=== PATIENT | female | born 1980 | race Caucasian/White ===

== ENCOUNTER 2020-08-11 15:20 | Emergency (ER) | payer OTHER, BC, SELFPAY ==
--- NOTE | ~2020-08-11 | XR_ITS ---
EXAMINATION: XR wrist RT min 3V EXAM DATE: 08/11/2020 16:37 INDICATION: Initial encounter following injury, with pain of the right wrist, felt pop. TECHNIQUE: Right wrist frontal, frontal with ulnar deviation, oblique and lateral projections obtain ed and reviewed. There is no prior study for comparison. FINDINGS: Right wrist scapholunate joint space is maintained. There are no acute fractures or disloca tions identified. There is no subcutaneous gas. The soft tissue is unremarkable. There are no rad iopaque foreign bodies. IMPRESSION: 1. Right wrist exam without acute osseous findings. Reviewed, dictated and finalized at location A. USSION INSTRUCTOR
[2020-08-11 15:45] VITALS: BP 108/72; PULSE 80; RESP 16; TEMP 36.6; O2SAT 98
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
== END 2020-08-11 17:49 | disposition home or self-care (01) ==
LOC: ANHED 17:52
PROVIDERS: Emergency Provider Emergency Medicine; PCP Family Medicine
DX: S63.501A Unspecified sprain of right wrist, initial encounter (principal); X50.9XXA Other and unspecified overexertion or strenuous movements or postures, initial encounter
CPT/HCPCS: 73110; 99283

== ENCOUNTER 2020-11-01 11:39 | Emergency (ER) | payer OTHER, BC, SELFPAY ==
--- NOTE | ~2020-11-01 | CT_ITS ---
EXAMINATION: CT brain wo con DATE: 11/01/2020 12:26 INDICATION: Closed head injury TECHNIQUE: Computed tomography (CT) of the head was performed without intravenous contrast. Sagittal and coronal reconstructions were performed. The mA was adjusted according to patient size. Iterative reconstruction technique was employed. The dose-length product was 605.33 mGy-cm. COMPARISON: None FINDINGS: No fracture. No acute intracranial hemorrhage, acute infarction or abnormal extra axial fluid collect ion. Ventricles are normal and symmetric. No mass/mass effect. The orbits, paranasal sinuses and mast oid air cells are normal. IMPRESSION: 1. Normal head CT. Reviewed, dictated and finalized at location A. IMPRESSION: 1. Normal head CT.
--- NOTE | ~2020-11-01 | CT_ITS ---
EXAMINATION: CT cervical spine wo con DATE: 11/01/2020 12:26 INDICATION: Closed head injury with neck pain and left-sided headache TECHNIQUE: Computed tomography (CT) of the cervical spine was performed without intravenous contrast. Automated exposure control and iterative reconstruction technique were employed. The dose-length pro duct was 229.89 mGy-cm. COMPARISON: None FINDINGS: Alignment is normal. Vertebral body heights are normal. No fracture. Minimal to mild disc height loss at C2-C3, C3-C4 and C5-C6. Multilevel mild facet and uncovertebral osteoarthritis. No significant ce ntral canal or neural foraminal stenosis. Cervical soft tissues are unremarkable. Visualized airway a nd apices of lungs are clear. IMPRESSION: 1. Minimal to mild cervical spondylosis. No acute osseous abnormality. Reviewed, dictated and finalized at location A.
[2020-11-01 11:47] VITALS: BP 117/66; PULSE 73; RESP 18; TEMP 36.6; O2SAT 100
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
== END 2020-11-01 13:36 | disposition home or self-care (01) ==
PROVIDERS: Emergency Provider Emergency Medicine; PCP Family Medicine
DX: F07.81 Postconcussional syndrome (principal); M47.812 Spondylosis without myelopathy or radiculopathy, cervical region; W51.XXXA Accidental striking against or bumped into by another person, initial encounter
CPT/HCPCS: 70450; 72125; 99284

== ENCOUNTER 2022-01-20 09:33 | Outpatient (CLI) | payer BC, SELFPAY ==
[2022-01-20 10:21] LABS: Hemoglobin 13.5 g/dL (12.0-15.0); Mean Corpuscular HGB Conc 32.1 g/dl (32-36); Mean Corpuscular Hemoglobin 28.6 pg (26-34); Mean Platelet Volume 10.2 fl (7.4-10.4); Platelet Count Result 199 k/mm3 (150-375); Red Blood Count 4.72 M/mm3 (4.2-5.4); Red Cell Distribution Width 12.7 % (11.5-14.5); White Blood Count 7.2 K/mm3 (4.5-10.0)
[2022-01-20 10:35] LABS: Alanine Aminotransferase 15 U/L (6-35); Albumin Level 4.5 g/dL (3.5-5.1); Alkaline Phosphatase 57 U/L (38-126); Anion Gap 8 mmol/L (8-16); Aspartate Amino Transferase 25 U/L (14-36); Bilirubin,Total 0.6 mg/dL (0.2-1.3); Blood Urea Nitrogen 14 mg/dL (7-17); CRP < 0.5 mg/dL (<1.0); Calcium 9.4 mg/dL (8.4-10.2); Carbon Dioxide 26 mmol/L (22-30); Chloride 99 mmol/L (98-107); Estimated Glomerular Filt Rate > 60; Glucose 95 mg/dL (65-110); Potassium 4.3 mmol/L (3.4-5.0); Sodium 133 mmol/L (137-145)
[2022-01-20 11:09] LABS: Erythrocyte Sedimentation Rate 8 mm/hr (0-20)
[2022-01-27 12:26] LABS: Tissue Transglutaminase IgA Ab <1.0 U/mL (<15.0)
[2022-01-28 11:19] LABS: Tissue Transglutaminase IgG Ab <1.0 U/mL (<15.0)
== END 2022-01-20 09:34 | disposition home or self-care (01) ==
LOC: ANHLAB 09:38
PROVIDERS: Visit Provider Nurse Practitioner Family
DX: R19.7 Diarrhea, unspecified (principal); R14.0 Abdominal distension (gaseous); R11.0 Nausea; N94.10 Unspecified dyspareunia
CPT/HCPCS: 36415; 80053; 83516; 84443; 85027; 85652; 86140

== ENCOUNTER → 2022-01-20 13:56 | Outpatient (CLI) | payer BC, SELFPAY ==
--- NOTE | ~2022-01-20 | US_ITS ---
EXAMINATION: US pelvic complete DATE: 01/20/2022 14:47 INDICATION: Dyspareunia Comparison:No prior studies for comparison. TECHNIQUE: Multiple transabdominal and endovaginal sonographic images of the pelvis performed. FINDINGS: The uterus measures 7.6 x 3.8 x 4.6 cm. There are small benign cysts of the uterus. The end ometrial complex measures 3.7 mm. The right ovary measures 2.3 x 2.1 x 2.2 cm and the left ovary measures 2.8 x 2.7 x 2.1 cm. There ar e small follicles in each ovary. Normal doppler signal in both ovaries. There is no free fluid in the pelvis. There are no abnormal masses seen on either side. IMPRESSION: 1. Unremarkable pelvic ultrasound Reviewed, dictated and finalized at location A.
== END ==
PROVIDERS: PCP Nurse Practitioner Family; Visit Provider Nurse Practitioner
DX: N94.10 Unspecified dyspareunia (principal)
CPT/HCPCS: 76856

== ENCOUNTER 2022-01-21 10:30 | Outpatient (CLI) | payer BC, SELFPAY ==
[2022-01-21 12:15] LABS: Toxigenic C. Diff NEGATIVE (NEGATIVE)
[2022-01-28 22:31] LABS: Calprotectin, Stool <5 mcg/g
== END 2022-01-21 10:31 | disposition home or self-care (01) ==
LOC: ANHLAB 10:31
PROVIDERS: PCP Nurse Practitioner Family; Visit Provider Nurse Practitioner Family
DX: R19.7 Diarrhea, unspecified (principal); R14.0 Abdominal distension (gaseous); R11.0 Nausea
CPT/HCPCS: 83993; 87045; 87177; 87209; 87427; 87493

== ENCOUNTER 2022-01-25 11:13 | Outpatient (CLI) | payer BC, SELFPAY ==
--- NOTE | ~2022-01-25 | XR_ITS ---
EXAMINATION: XR foot RT min 3V DATE: 01/25/2022 11:32 INDICATION: Right foot pain TECHNIQUE: Dorsoplantar, lateral, and 2 oblique views of the right foot were obtained. COMPARISON: None. FINDINGS: There is moderate osteoarthritis at the first metatarsophalangeal joint there is an acute i ntra-articular fracture at the dorsal base of the first proximal phalanx. No additional fracture is i dentified. There is mild osteoarthritis of several interphalangeal joints. IMPRESSION: 1. Acute fracture at the dorsal base of the first proximal phalanx. 2. Polyarticular osteoarthritis. Reviewed, dictated and finalized at location A.
[2022-01-25 20:42] LABS: Iron 78 ug/dL (37-170)
[2022-01-25 20:47] LABS: Percent Iron Saturation 25 % (20-50)
[2022-01-25 20:58] LABS: Vitamin D 25 Hydroxy 62.8 ng/mL
== END 2022-01-25 11:14 | disposition home or self-care (01) ==
LOC: ANHBWCIMG 11:14
PROVIDERS: PCP Family Medicine; Visit Provider Family Medicine
DX: G43.909 Migraine, unspecified, not intractable, without status migrainosus (principal); E61.1 Iron deficiency
CPT/HCPCS: 36415; 73630; 82306; 83540; 83550

== ENCOUNTER 2022-03-15 11:58 | Outpatient (CLI) | payer BC, SELFPAY ==
--- NOTE | ~2022-03-15 | XR_ITS ---
EXAMINATION: XR foot RT min 3V DATE: 03/15/2022 12:15 INDICATION: Unspecified fracture of unspecified toes. TECHNIQUE: 4 views of right foot were obtained. COMPARISON: Right foot radiographs 01/25/2022 FINDINGS: There is mild hallux varus. No fracture. There is moderate osteoarthritis of first metatars ophalangeal joint with periarticular calcifications. IMPRESSION: 1. Moderate osteoarthritis of first metatarsophalangeal joint. 2. Mild hallux valgus. Reviewed, dictated and finalized at location B.
== END 2022-03-15 11:59 | disposition home or self-care (01) ==
LOC: ANHBWCIMG 11:59
PROVIDERS: PCP Family Medicine; Visit Provider Family Medicine
DX: S92.911A Unspecified fracture of right toe(s), initial encounter for closed fracture (principal); M20.11 Hallux valgus (acquired), right foot; M19.071 Primary osteoarthritis, right ankle and foot
CPT/HCPCS: 73630

== ENCOUNTER 2023-11-10 11:39 | Outpatient (CLI) | payer BC, SELFPAY ==
--- NOTE | ~2023-11-10 | MM_ITS ---
EXAMINATION: MM screening juani BI w gonzalez HISTORY: Screening TECHNIQUE: Craniocaudal and mediolateral oblique 3-D tomosynthesis images were obtained and synthetic 2-D images were generated. CAD analysis was submitted and interpreted. COMPARISON: No prior mammogram is available for comparison at this institution. BREAST PARENCHYMAL COMPOSITION: Dense: The breasts are heterogeneously dense, which may obscure small masses FINDINGS: There is a focal asymmetry superiorly in the right breast. There is no mammographic evidenc e for malignancy in the left breast. There are no suspicious calcifications or architectural distorti on. IMPRESSION: 1. Focal right breast asymmetry. 2. Additional mammographic views and possible breast ultrasound are recommended. BI-RADS Category 0: Incomplete: Needs additional imaging evaluation. Reviewed, dictated and finalized at location B. IMPRESSION: 1. Focal right breast asymmetry. 2. Additional mammographic views and possible breast ultrasound are recommended . BI-RADS Category 0: Incomplete: Needs additional imaging evaluation.
[2023-12-21 17:23] LABS: Result NEGATIVE
== END 2023-11-10 11:40 | disposition home or self-care (01) ==
PROVIDERS: PCP Nurse Practitioner Adult Health; Visit Provider Nurse Practitioner Adult Health
DX: Z13.79 Encounter for other screening for genetic and chromosomal anomalies (principal); Z12.31 Encounter for screening mammogram for malignant neoplasm of breast; R92.8 Other abnormal and inconclusive findings on diagnostic imaging of breast
CPT/HCPCS: 77063; 77067; 81162

== ENCOUNTER 2023-11-14 08:55 | Outpatient (CLI) | payer BC, SELFPAY ==
--- NOTE | ~2023-11-14 | MMUS_ITS ---
EXAMINATION: MM diagnostic juani RT w gonzalez, US breast RT complete HISTORY: Follow-up right breast asymmetry TECHNIQUE: Additional 3-D tomosynthesis images of the right breast were performed and synthetic 2-D i mages were generated. CAD analysis was submitted and interpreted. High resolution complete right sisi st ultrasound was performed. COMPARISON: 11/10/2023 BREAST PARENCHYMAL COMPOSITION: Dense: The breasts are extremely dense, which lowers the sensitivity of mammography. FINDINGS: MAMMOGRAPHIC FINDINGS: The area of asymmetry is less apparent with spot compression and mediolateral views. No discrete mass identified. No suspicious calcifications or architectural distortion. ULTRASOUND: Complete US of all 4 quadrants of the right breast and retroareolar region was reviewed. Normal heter ogeneous echotexture without focal solid or cystic mass. IMPRESSION: 1. No evidence for malignancy in the right breast. 2. Routine yearly screening mammogram and regular clinical breast examination are recommended. BI-RADS Category 1: Negative Reviewed, dictated and finalized at location B. IMPRESSION: 1. No evidence for malignancy in the right breast. 2. Routine yearly screening mammogram and regular clinical breast examination a re recommended. BI-RADS Category 1: Negative
== END 2023-11-14 08:56 | disposition home or self-care (01) ==
PROVIDERS: PCP Nurse Practitioner Adult Health; Visit Provider Nurse Practitioner Adult Health
DX: R92.8 Other abnormal and inconclusive findings on diagnostic imaging of breast (principal)
CPT/HCPCS: 76641; 77061; 77065; G0279

== ENCOUNTER 2024-02-01 15:40 | Outpatient (CLI) | payer BC, SELFPAY | END 2024-02-01 15:41 | disposition home or self-care (01) | LOC: ANHBWCLAB 15:42 | PROVIDERS: PCP Nurse Practitioner Adult Health; Visit Provider Nurse Practitioner Adult Health | DX: Z13.79 Encounter for other screening for genetic and chromosomal anomalies (principal) | CPT/HCPCS: 36415 ==

== ENCOUNTER 2024-11-26 08:38 | Outpatient (CLI) | payer BC, SELFPAY ==
--- NOTE | ~2024-11-26 | MM_ITS ---
EXAMINATION: MM screening [facility] BI w gonzalez HISTORY: Screening TECHNIQUE: Craniocaudal and mediolateral oblique 3-D tomosynthesis images were obtained and synthetic 2-D images were generated. CAD analysis was submitted and interpreted. COMPARISON: Comparison to multiple prior studies sequentially, with oldest reviewed study dated 11/09. BREAST PARENCHYMAL COMPOSITION: Dense: The breasts are heterogeneously dense, which may obscure small masses FINDINGS: There is no evidence of suspicious mass, calcification, or architectural distortion to sugg est malignancy in either breast. There has been no suspicious interval change. IMPRESSION: 1. No mammographic evidence of malignancy. 2. Recommend routine screening mammography in one year. BI-RADS Category 1: Negative Reviewed, dictated and finalized at location A.
--- OUTSIDE RECORDS SUMMARY | 2024-11-26 08:49 | XMS_ITS | Clinical Summary ---
Author Organization [facility] Address [address] [place] [place] [address] Care Team Providers Care Retail Grocer Name Role Phone Julius Samuel MD Primary Care Provider [phone] Source Comments [facility],non-owned Affiliates and Associated Physician Practices is amultiple site organization consisting of ambulatory clinics and hospital sitesin [place], [place], [place] and [place]. This disclosure is being madepursuant to the Care Everywhere program and may not contain all information available regarding this patient. Last updated 18.[facility] Allergies Active Allergy Reactions Criticality Noted Date Comments Codeine Vomiting High 12/19/2019 Shellfish Allergy Rash Medium 12/19/2019 Medications * Be aware that medications may not be up to date on this document. Alwaysverify current medications with the patient. 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 Gender Identity Not on file Sexual Orientation Not on file Last Filed Vital Signs Vital Sign Reading Time Taken Comments Blood Pressure 102/68 02/22/2020 10:00 AM CDT Pulse 70 02/22/2020 10:00 AM CDT Temperature 36.6 C (97.8 F) 02/22/2020 9:10 AM CDT Respiratory Rate 15 02/22/2020 10:00 AM CDT Oxygen Saturation 98% 02/22/2020 10:00 AM CDT Inhaled Oxygen Concentration 99% 02/22/2020 6 :37 AM CDT Weight 60.3 kg (133 lb) 02/22/2020 6:17 AM CDT Height 152.4 cm (5') 02/22/2020 6:17 AM CDT Body Mass Index 25.97 02/22/2020 6:17 AM CDT Plan of Treatment Health Maintenance Due Date Last Done Comments LIPID TESTING 1980 MAMMOGRAM 1980 HIV SCREENING 1995 HEPATITIS C SCREENING 05/22/1998 DTAP/TDAP/TD VACCINES (1 - Tdap) 1999 HEPATITIS B VACCINE (1 of 3 - 19+ 3-dose series) 1999 COVID-19 VACCINE ( - 2023-2 5 season) 2024 DEPRESSION SCREENING 06/13/2024 INFLUENZA VACCINE (Season Ended) 2025 ZOSTER VACCINE (1 of 2) 2030 HIB VACCINE Aged Out No longer eligi ble based on patient's age to complete this topic HPV VACCINE Aged Out No longer eligi ble based on patient's age to complete this topic MENINGOCOCCAL (Group B) VACC INE SHARED DECISION-MAKING Aged Out No longer eligibl e based on patient's age to complete this topic MENINGOCOCCAL GROUPS A/C/Y/W VACCINE Aged Out No longer eligible b ased on patient's age to complete this topic PNEUMOCOCCAL VACCINE Aged Out No long er eligible based on patient's age to complete this topic Insurance DEBBY * Guarantor: MARIA INES LIM Account Type Relation to Patient Date of Phone Billing Address Personal/Family 1980 [address] [place] [address] ANTHEM Advance Directives * Full Code (Latest Code Status on File) Date Activated Date Inactivated Comments 02/22/2020 6:18 AM 02/22/2020 12:17 PM Care Teams Retail Grocer Relationship Specialty Start Date End Date Julius Samuel MD PCP - General 08/28/19
--- OUTSIDE RECORDS SUMMARY | 2024-11-26 08:49 | XMS_ITS | Clinical Summary ---
Author Organization [facility] Care Team Providers Care Jumbo Operator Name Role Phone Ray Castaneda MD Primary Care Provider [phone] Allergies No known active allergies Medications FLUoxetine 10 mg tablet Take 1 tablet/capsu le (10 mg total) by mouth nightly 08/31/2023 Active Active Problems No known active problems Social History Tobacco Use Types Packs/Day Years Used Date Smoking Tobacco: Never Personal Safety Answer Date Recorded Getting School Help Needed Not on file 08/27 Comments No Sex and Gender Information Value Date Recorded Sex Assigned at Not on file Legal Sex Female 9:13 AM CDT Gender Identity Not on file Sexual Orientation Not on file Obstetrics History Last Filed Vital Signs Vital Sign Reading Time Taken Comments Blood Pressure 98/74 09/26/2023 9:34 AM CDT Pulse 94 09/26/2023 9:34 AM CDT Temperature 36.9 C (98.4 F) 09/26/2023 9:34 AM CDT Respiratory Rate 17 09/26/2023 9:34 AM CDT Oxygen Saturation 98% 09/26/2023 9:34 AM CDT Inhaled Oxygen Concentration - - Weight 60.3 kg (133 lb) 09/26/2023 9:34 AM CDT Height 154.9 cm (5' 1) 09/26/2023 9:34 AM CDT Body Mass Index 25.13 09/26/2023 9:34 AM CDT Plan of Treatment Health Maintenance Due Date Last Done Comments Breast Cancer Screening-Mammogram 1980 Cervical Cancer Screening 1980 Depression Screening 1980 Hepatitis C Screening 1980 DTaP/Tdap/Td Vaccine (1 - Tdap) 1991 Varicella Vaccines (1 of 2 - 13+ 2-dose series) 1993 Hepatitis B Screening 1998 Regular Well Visit/Exam 18-64 1998 Covid-19 Vaccine (3 - season) 2024 08/21/2020, 07/31/2020 Influenza Vaccine (Season Ended) 2025 05/10/2022, 04/26/2020, 03/23/2019, Additional history exists HPV Vaccines Aged Out No longer eligi ble based on patient's age to complete this topic Pneumococcal vaccine <65 Aged Out No longer eligible based on patient's age to complete this topic Insurance [facility] Care Teams Jumbo Operator Relationship Specialty Start Date End Date Ray Castaneda MD PCP - General Family Practice 09/26/23
--- OUTSIDE RECORDS SUMMARY | 2024-11-26 08:49 | XMS_ITS | Encounter Summary ---
Author Organization [facility] Address [address] [place] [address] Care Team Providers Care Repairer Switchgear Name Role Phone Julius Samuel MD Primary Care Provider [phone] Encounter Details Date Type Department Care Team (Late st Contact Info) Description 01/15/2020 Telephone [facility] [address] [place] [address] Kaylee Cameron MD [address] [place] [address] Social History Tobacco Use Types Packs/Day Years Used Date Smoking Tobacco: Never Smokeless Tobacco: Never Alcohol Use Standard Drinks/Week Comments Yes 0 (1 standard drink = 0.6 oz pur e alcohol) Comments Unknown Sex and Gender Information Value Date Recorded Sex Assigned at Not on file 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 Call reference# [id number]. Patient is scheduled for this procedure with Dr. Cameron on 02/22/2020. She is coming into [facility] for her COVID test on 02/20/2020 at 4:50pm. Tricia Taylor [phone] documented in this encounter Plan of Treatment Not on file documented as of this encounter Visit Diagnoses Not on filedocumented in this encounter Additional Health Concerns Infection Onset Date Last Indicated Resolved Time COVID-19 Under Investigation 02/20/2020 02/20/2020 02/21/2020 12:31 PM CDT documented as of this encounter Care Teams Repairer Switchgear Relationship Specialty Start Date End Date Julius Samuel MD PCP - General 08/28/19 documented as of this encounter
--- OUTSIDE RECORDS SUMMARY | 2024-11-26 08:49 | XMS_ITS | Referral Summary ---
Author Organization [facility] Care Team Providers Care Inspector Outside Steam Distribution Name Role Phone Ray Castaneda MD Primary Care Provider [phone] Allergies No known active allergies Medications FLUoxetine [...] 09/26/2023 9:34 AM CDT Plan of Treatment Not on file Insurance [facility] Care Teams Inspector Outside Steam Distribution Relationship Specialty Start Date End Date Ray Castaneda MD PCP - General Family Practice 09/26/23
--- OUTSIDE RECORDS SUMMARY | 2024-11-26 08:49 | XMS_ITS | Clinical Summary ---
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 Gender Identity Not on file Sexual Orientation Not on file Plan of Treatment Health Maintenance Due Date Last Done Comments Hepatitis C Virus (HCV) Screening 1980 TdaP Immunization 1980 Hepatitis B Immunization (1 of 3 - 19+ 3-dose series) 1999 Pap Smear 2001 Cervical Cancer Screening (CCS) 2010 HPV/Cotest 2010 Discussion re Starting/Frequ ency of Mammograms 2020 Influenza Immunization (#1) 2024 04/26/2020 SARS-COV-2 Immunization ( season) 2024 Respiratory Syncytial Virus (RSV) Immunization (Adult) (1 - 1-dose 75+ series) 2055 Meningococcal Immunization (ACWY) Aged Out No longer eligible based on patient's age to complete this topic Pneumococcal Immunization Combined Aged Out No longer eligible based on patient's age to complete this topic Rotavirus Immunization Aged Out No lo nger eligible based on patient's age to complete this topic Insurance [employer] on file
== END 2024-11-26 08:39 | disposition home or self-care (01) ==
LOC: CHSIMG 08:39
PROVIDERS: PCP Nurse Practitioner Adult Health; Visit Provider Nurse Practitioner Adult Health
DX: Z12.31 Encounter for screening mammogram for malignant neoplasm of breast (principal)
CPT/HCPCS: 77063; 77067